=== PATIENT | female | born 1945 | race Caucasian/White ===

== ENCOUNTER 2017-11-13 11:24 | Day surgery (SDC) | payer MEDICARE ==
[2017-11-12 16:03] VITALS: BP 159/74
[2017-11-12 16:09] LABS: BASOPHILS % (AUTO) 0.7 % (0.0-5.0); EOSINOPHILS % (AUTO) 0.5 % (0.0-8.0); HEMATOCRIT 38.9 % (36-48); LYMPHOCYTES % (AUTO) 18.1 % (21.0-51.0); MEAN CORPUSCULAR HEMOGLOBIN 31.5 pg (27.0-33.0); MEAN CORPUSCULAR VOLUME 90.2 fL (79-99); MONOCYTES % (AUTO) 6.5 % (3.0-13.0); NEUTROPHILS % (AUTO) 74.2 % (40.0-77.0); PLATELET COUNT (AUTO) 243 K/uL (130-400); RED BLOOD CELL COUNT(AUTO) 4.32 MIL/uL (4.00-5.50); WHITE BLOOD COUNT (AUTO) 8.2 K/uL (4.8-10.8)
[2017-11-12 16:23] LABS: APPEARANCE,URINE Clear (CLEAR); BILIRUBIN,URINE Negative (NEGATIVE); COLOR,URINE Yellow (YELLOW); GLUCOSE, URINE (UA) Negative (NEGATIVE); KETONES,URINE Negative (NEGATIVE); LEUKOCYTE ESTERASE ,URINE Small (NEGATIVE); NITRATE,URINE Negative (NEGATIVE); OCCULT BLOOD,URINE Negative (NEGATIVE); PH,URINE 6.5 (5.0-8.0); PROTEIN,URINE Negative (NEGATIVE)
[2017-11-12 16:25] LABS: INR 1.02 (0.85-1.15); PROTHROMBIN TIME 10.7 SEC (9.6-11.6)
[2017-11-12 16:26] LABS: ALBUMIN 4.1 g/dL (3.5-5.0); BILIRUBIN,TOTAL 0.3 mg/dL (0.2-1.0); CREATININE 1.1 mg/dL (0.5-1.5); POTASSIUM 3.8 mmol/L (3.5-5.1); TOTAL PROTEIN, SERUM 7.5 g/dL (6.0-8.3)
[2017-11-12 17:23] LABS: RBC,URINE 0-1 /HPF (0-1); WBC,URINE 0-1 /HPF (0-1)
[2017-11-12 17:24] LABS: BACTERIA,URINE Rare /HPF (None Seen); SQUAMOUS EPITHELIAL CELL,UR Rare /LPF (0-2)
[~2017-11-13] VITALS: Ht 165.1 cm; Wt 86.5 kg
[2017-11-13] VITALS (17 sets, daily range): BP systolic 129–153; BP diastolic 59–71
[2017-11-13] MEDS: CEFAZOLIN SODIUM 1 GM VIAL IVP SCH ×2 (07:15→13:44)
[~2017-11-13 11:24] MED LIST: AMLO10TA2 PO; ESOM40CA PO; FENO160 PO
[2017-11-13] MEDS ORDERED: LACTATED RINGERS 1000ML 1,000 ML IV ONE (12:06)
[2017-11-13] MEDS ORDERED: GLYCOPYRROLATE 0.2 MG/ML 5 ML VIAL ONE (13:38)
[2017-11-13] MEDS ORDERED: DEXAMETHASONE SOD PHOSPHATE 10MG/ML 1ML VIAL ONE (13:38)
[2017-11-13] MEDS ORDERED: PROPOFOL 10 MG/ML 20ML VIAL IV ONE (13:38)
[2017-11-13] MEDS ORDERED: LIDOCAINE PF 2% 5ML ABBOJECT ONE (13:38)
[2017-11-13] MEDS ORDERED: MIDAZOLAM HCL 1 MG/ML 2ML VIAL ONE (13:38)
[2017-11-13] MEDS ORDERED: FENTANYL CITRATE PF 50 MCG/1 ML 2ML VIAL ONE (13:39)
== END 2017-11-13 16:35 | disposition home or self-care (01) ==
LOC: DAH 11:24
DX: M65.842 Other synovitis and tenosynovitis, left hand (principal); E78.00 Pure hypercholesterolemia, unspecified; K21.9 Gastro-esophageal reflux disease without esophagitis; Z79.899 Other long term (current) drug therapy; I10 Essential (primary) hypertension; E66.9 Obesity, unspecified; Z79.01 Long term (current) use of anticoagulants
CPT/HCPCS: 26160; 36415; 71045; 80053; 81001; 85025; 85610; 85730; 88304; 93005; A4218; A4452; A4606; A6446; J0690; J1100; J2001; J2250; J2704; J3010; J3490; J7120 ×2

== ENCOUNTER 2023-08-20 12:33 | Emergency (ER) | payer MEDICARE ==
[~2023-08-20] VITALS: Ht 162.6 cm; Wt 90.7 kg
[~2023-08-20 12:33] MED LIST changes: +AMLO-258 PO; -AMLO10TA2 PO
[2023-08-20 14:50] LABS: BASOPHILS # (AUTO) 0.07 K/uL (0.00-0.20); BASOPHILS % (AUTO) 0.7 % (0.0-5.0); HEMATOCRIT 45.7 % (36-48); IMMATURE GRANULOCYTE ABSOLUTE 0.05 K/uL (0-1); LYMPHOCYTES # (AUTO) 1.8 K/uL (1.0-4.8); LYMPHOCYTES % (AUTO) 18.1 % (21.0-51.0); MEAN CORPUSCULAR HEMOGLOBIN 29.1 pg (27.0-33.0); MEAN CORPUSCULAR HGB CONC 32.4 g/dL (32.0-36.0); MONOCYTES # (AUTO) 0.7 K/uL (0.1-1.0); NEUTROPHILS % (AUTO) 72.7 % (40.0-77.0); PLATELET COUNT (AUTO) 242 K/uL (130-400); RED BLOOD CELL COUNT(AUTO) 5.08 MIL/uL (4.00-5.50); RED CELL DISTRIBUTION WIDTH 13.2 % (11.0-15.5); WHITE BLOOD COUNT (AUTO) 9.7 K/uL (4.8-10.8)
[2023-08-20 14:56] LABS: POTASSIUM 3.8 mmol/L (3.5-5.1)
[2023-08-20 15:01] LABS: ALBUMIN 3.9 g/dL (3.5-5.0); BILIRUBIN,TOTAL 0.3 mg/dL (0.2-1.0)
[2023-08-20] MEDS ORDERED: IOHEXOL-350 75 ML VIAL IV ONE (15:15)
[2023-08-20 16:41] VITALS: BP 155/80; PULSE 88; RESP 18; O2SAT 98
[2023-08-20] MEDS ORDERED: IBUP-2070 PO (17:03)
== END 2023-08-20 17:16 | disposition home or self-care (01) ==
LOC: EDH 12:33
DX: S00.93XA Contusion of unspecified part of head, initial encounter (principal); I25.10 Atherosclerotic heart disease of native coronary artery without angina pectoris; E78.00 Pure hypercholesterolemia, unspecified; V89.2XXA Person injured in unspecified motor-vehicle accident, traffic, initial encounter; Y93.89 Activity, other specified; Y92.89 Other specified places as the place of occurrence of the external cause; Y99.8 Other external cause status
CPT/HCPCS: 99285; 70450; 80053; 85025; 36415; 73000; 73030; 71250; 70496; 70498; 74176; Q9967